=== PATIENT | female | born 1930 | race Caucasian/White ===

== ENCOUNTER 2016-08-24 21:31 | Emergency (ER) | payer OTHER ==
--- NOTE | 2016-08-24 22:16 | EDPHY ---
H & P Stated Complaint: unable to urinate Time Seen by Provider: 08/24/16 21:44 HPI/ROS: Chief complaint: Unable to urinate HPI: Patient is presenting with inability to urinate for the last several hours. Patient has history of urinary retention in the past after surgery. She also has a history of uterine prolapse and uses a pessary. Recently she has had some difficulty with urination which was attributed to the pessary. This was changed to defer when she was having no difficulties with urination after that. She has also recently diagnosed with a urinary tract infections currently taking antibiotics for this. She has been diagnosed with a vaginal yeast infection which has been attributed to the pessary injury removed her pessary today. Since that time she has been unable to urinate. No fevers or chills. No nausea or vomiting. No diarrhea. She does wear ostomy. ROS: 10 point Review of Systems is negative except as noted in the HPI. 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 External auditory canals are clear. Nose: no rhinorrhea Eyes: PERRLA, EOMI Mouth: Moist mucosa Neck: Supple, no JVD Chest: nontender, lungs clear to auscultation Heart: S1, S2 normal, no murmur Abd: Soft, bladder is distended and palpable, no guarding, ostomy in place, normal appearing with normal output. Back: no CVA tenderness, no midline tenderness Ext: no edema, non-tender Skin: no rash Neuro: CN II-XII intact, Sensation grossly intact, Strength 5/5 in bilateral upper and lower extremities - Personal History Current Tetanus Diphtheria and Acellular Pertussis (TDAP): Unsure Tetanus Vaccine Date: see last visit - Medical/Surgical History Hx Asthma: No Hx Chronic Respiratory Disease: No Hx Diabetes: No Hx Cardiac Disease: Yes Hx Renal Disease: No Hx Cirrhosis: No Hx Alcoholism: No Hx HIV/AIDS: No Hx Splenectomy or Spleen Trauma: No Other PMH: Pacemaker (2013), elevated K+, HTN, TIA, hysterectomy, finger amputation, ankle fx, glaucoma, cardiac arrest, inguinal hernia, aortic regurg, scoliosis - Social History Smoking Status: Never smoked Constitutional: Initial Vital Signs Temperature (C) 36.8 C 08/24/16 21:36 Heart Rate 66 08/24/16 21:36 Respiratory Rate 20 08/24/16 21:36 Blood Pressure 120/46 L 08/24/16 21:36 O2 Sat (%) 91 L 08/24/16 21:36 O2 Delivery Mode Room Air Allergies/Adverse Reactions: No Known Allergies Allergy (Unverified 08/24/16 21:36) Home Medications: Medication Instructions Recorded Brimonidine/Timolol [Combigan (*)] 1 drops LEFTEYE BID@,18 08/04/14 Carvedilol [Coreg (*)] 25 mg PO BIDMEAL 08/04/14 Diltiazem Cd [Cardizem ER Q24hr] 180 mg PO DAILY 08/04/14 Folic Acid [Folic Acid 1 MG (*)] 2 mg PO HS 08/04/14 Isosorbide Mononitrate [Isosorbide 60 mg PO DAILY 08/04/14 Mononitrate ER] LORazepam [Ativan (*)] 0.5 mg PO BID@,08/04/14 Lovastatin 20 mg PO HS 08/04/14 Multivitamins [Multivitamin (*)] 1 each PO DAILY 08/04/14 Psyllium Husk (with Sugar) 1 packet PO HS 08/04/14 [Metamucil Packet] Vit A/Vit C/Vit E/Zinc/Copper 1 each PO HS 08/04/14 [Preservision Areds Tablet] Cholecalciferol Vit D3 [Vitamin D3 2,000 units PO HS 08/28/14 (*)] Levothyroxine [Synthroid 50 mcg 50 mcg PO DAILY06 08/28/14 (*)] Aspirin EC [Aspirin EC 325 mg (*)] 325 mg PO DAILY #20 tab 09/11/14 Estrogens,Conjugated [Premarin 1 ethel VG FR@05/08/15 Vaginal (*)] Furosemide [Lasix 20 MG (*)] 20 mg PO DAILY@07 05/08/15 OLANZapine [ZyPREXA 2.5 mg (*)] 7.5 mg PO HS 05/08/15 Oxycodone HCl [Dazidox] 10 mg PO DAILY PRN 05/08/15 Oxycodone HCl [Oxycontin] 40 mg PO Q12 05/08/15 Potassium Cl [Klor-Con 20 meq (*)] 20 meq PO DAILY@07 05/08/15 Zolpidem Tartrate [Ambien 5MG (*)] 5 mg PO HS PRN 05/08/15 Acetaminophen [Tylenol 325mg (*)] 650 mg PO Q4 PRN #0 tab 05/24/15 Lidocaine 5% [Lidoderm 5% Patch 1 ea TD DAILY #0 patch 05/24/15 (*)] Ondansetron Odt [Zofran Odt 4 mg 4 mg PO Q4 PRN #0 tab 05/24/15 (*)] Pantoprazole Sodium [Protonix 40mg 40 mg PO BID #0 tab 05/24/15 (*)] Medical Decision Making ED Course/Re-evaluation: Bladder scan shows greater than 1000 mL in her bladder. Hua catheter has been ordered. Departure - Departure Disposition: Home, Routine, Self-Care Clinical Impression: Urinary retention, Uterine prolapse Condition: Good Instructions: Acute Urinary Retention in Women (ED), Uterine Prolapse (ED), Hua Catheter Placement and Care (ED) Additional Instructions: Keep the catheter in place until your seen by Urology. Follow up with Dr. Blanca, urology in the next 2-3 days. Return emergency depart for increasing pain, fevers, chills, nausea, vomiting, or any other concerns. Referrals: Merari Zabala MD [Primary Care Provider] - As per Instructions Anthony Blanca MD [Medical Doctor] - As per Instructions
[2016-08-24 22:40] LABS: COLOR YELLOW; LEUKOCYTE ESTERASE,URINE NEGATIVE (NEGATIVE); NITRITE,URINE NEGATIVE (NEGATIVE)
[2016-08-24 23:54] VITALS: BP 125/69; PULSE 70; RESP 18; TEMP 98.1; O2SAT 92
== END 2016-08-24 23:53 | disposition home or self-care (01) ==
PROC: 0T9B70Z Drainage of Bladder with Drainage Device, Via Natural or Artificial Opening (ICD-10-PCS; principal; 2016-08-24)
DX: N81.4 Uterovaginal prolapse, unspecified (principal); R33.9 Retention of urine, unspecified; I10 Essential (primary) hypertension; Z79.82 Long term (current) use of aspirin; Z86.73 Personal history of transient ischemic attack (TIA), and cerebral infarction without residual deficits

== ENCOUNTER → 2016-09-25 | Outpatient (CLI) | payer OTHER | LOC: BMCIMAGING 12:30 | PROVIDERS: ATTEND Internal Medicine Rheumatology | DX: M19.011 Primary osteoarthritis, right shoulder (principal); D48.0 Neoplasm of uncertain behavior of bone and articular cartilage ==

== ENCOUNTER 2017-07-13 13:07 | Emergency (ER) | payer OTHER ==
[2017-07-13 13:19] VITALS: RESP 18; O2SAT 93
--- NOTE | 2017-07-13 13:36 | EDPHY ---
General Narrative: CHIEF COMPLAINT: Fall, head injury HISTORY OF PRESENT ILLNESS: Patient arrives by EMS with complaints of mechanical fall. She says she was at the [employer] shop at [facility] when she tripped and fell. She slid down a chair instructed back of her head per EMS. No loss of conscious. Minimal headache. No neck pain or stiffness. No abdominal or back pain. No chest pain. No injury to the arms or legs. No vomiting. No changes in vision. Her complaint is minimal. She was told that she had to come to the emergency department for evaluation. She is seen at time of arrival in no acute distress. There is reports of superficial bleeding from the posterior scalp without an identifiable laceration by EMS. No other associated complaints or modifying factors. REVIEW OF SYSTEMS: Ten systems reviewed and are negative unless otherwise noted in the HPI PCP: Does not recall PAST MEDICAL HISTORY: Multiple diagnoses reviewed. No anticoagulation PAST SURGICAL HISTORY: No recent surgeries SOCIAL HISTORY: Nonsmoker. Lives in independent living. FAMILY HISTORY: Noncontributory EXAMINATION General Appearance: Alert, no distress Head: normocephalic, no depression, ecchymosis or Galarza sign. No raccoon eyes. There is a superficial hematoma of the occiput. No active bleeding. Eyes: Pupils equal and round, no conjunctival pallor or injection. EOMs intact ENT, Mouth: Mucous membranes moist. Airway patent Neck: Normal inspection, supple, non-tender. No crepitus, step-off deformity. Respiratory: Lungs are clear to auscultation Cardiovascular: Regular rate and rhythm. Symmetric radial pulses 2+. Gastrointestinal: Abdomen is soft and nontender. No tympany rigidity Back: No crepitus or deformity. non-tender, no bony abnormalities Neurological: GCS 15. Cranial nerves 2-12 grossly intact. A&O, nonfocal, normal gait Skin: Warm and dry, no rash. Superficial hematoma to the occiput. No identifiable laceration. Extremities: Nontender, no pedal edema. Symmetric range of motion Psychiatric: Mood and affect normal DIFFERENTIAL DIAGNOSES: Including but not limited to closed head injury, scalp hematoma, intracranial hemorrhage, skull fracture MDM: 1:20 p.m. Mechanical fall with occipital hematoma. No evidence of loss of consciousness or sustain concussion. No abnormality on neuro examination. No use of anticoagulants other than aspirin. Her neck exam is normal. Given the patient' s age, I have ordered CT scans of the head and cervical spine. She is in no acute distress. 2:15 p.m. Notified by radiologist Dr. Albert. CT scan of the head and neck reveals no acute findings. There is progression of degenerative changes as noted. 3:00 p.m. Patient re-evaluated. I have examined the wound on the occiput further. There is no laceration that requires suture repair. There is abraded skin only. She is awake alert no acute distress. Her daughter is now bedside. We discussed outpatient follow-up for the degenerative changes of the cervical spine. We discussed ED precautions for head injury including sudden change in headache, neck pain or stiffness, vomiting or visual change. The patient and her daughter are comfortable with this plan. She is discharged home stable condition. SUPERVISION: Patient was independently examined, but I discussed the case with my primary supervising physician Dr. Juinor. - History Smoking Status: Never smoked - Objective Vital Signs: Initial Vital Signs Temperature (C) 98.1 F 07/13/17 13:07 Heart Rate 60 07/13/17 13:07 Respiratory Rate 18 07/13/17 13:07 Blood Pressure 116/59 L 07/13/17 13:07 O2 Sat (%) 93 07/13/17 13:07 O2 Delivery Mode Room Air Allergies/Adverse Reactions: No Known Allergies Allergy (Verified 07/13/17 13:15) Home Medications: Medication Instructions Recorded Brimonidine/Timolol [Combigan (*)] 1 drops LEFTEYE BID@,18 08/04/14 Carvedilol [Coreg (*)] 25 mg PO BIDMEAL 08/04/14 Diltiazem Cd [Cardizem ER Q24hr] 180 mg PO DAILY 08/04/14 Folic Acid [Folic Acid 1 MG (*)] 2 mg PO HS 08/04/14 Isosorbide Mononitrate [Isosorbide 60 mg PO DAILY 08/04/14 Mononitrate ER] LORazepam [Ativan (*)] 0.5 mg PO BID@07,21 08/04/14 Lovastatin 20 mg PO HS 08/04/14 Multivitamins [Multivitamin (*)] 1 each PO DAILY 08/04/14 Psyllium Husk (with Sugar) 1 packet PO HS 08/04/14 [Metamucil Packet] Vit A/Vit C/Vit E/Zinc/Copper 1 each PO HS 08/04/14 [Preservision Areds Tablet] Cholecalciferol Vit D3 [Vitamin D3 2,000 units PO HS 08/28/14 (*)] Levothyroxine [Synthroid 50 mcg 50 mcg PO DAILY06 08/28/14 (*)] Aspirin EC [Aspirin EC 325 mg (*)] 325 mg PO DAILY #20 tab 09/11/14 Estrogens,Conjugated [Premarin 1 ethel VG FR@05/08/15 Vaginal (*)] Furosemide [Lasix 20 MG (*)] 20 mg PO DAILY@05/08/15 OLANZapine [ZyPREXA 2.5 mg (*)] 7.5 mg PO HS 05/08/15 Oxycodone HCl [Dazidox] 10 mg PO DAILY PRN 05/08/15 Oxycodone HCl [Oxycontin] 40 mg PO Q12 05/08/15 Potassium Cl [Klor-Con 20 meq (*)] 20 meq PO DAILY@05/08/15 Zolpidem Tartrate [Ambien 5MG (*)] 5 mg PO HS PRN 05/08/15 Acetaminophen [Tylenol 325mg (*)] 650 mg PO Q4 PRN #0 tab 05/24/15 Lidocaine 5% [Lidoderm 5% Patch 1 ea TD DAILY #0 patch 05/24/15 (*)] Ondansetron Odt [Zofran Odt 4 mg 4 mg PO Q4 PRN #0 tab 05/24/15 (*)] Pantoprazole Sodium [Protonix 40mg 40 mg PO BID #0 tab 05/24/15 (*)] Departure - Departure Disposition: Home, Routine, Self-Care Clinical Impression: Fall Qualifiers: Encounter type: initial encounter Qualified Code(s): W19.XXXA - Unspecified fall, initial encounter Head injury Qualifiers: Encounter type: initial encounter Qualified Code(s): S09.90XA - Unspecified injury of head, initial encounter Scalp abrasion Qualifiers: Encounter type: initial encounter Qualified Code(s): S00.01XA - Abrasion of scalp, initial encounter Condition: Good Instructions: Concussion (ED), Head Injury (ED), Fall Prevention for Older Adults (ED) Additional Instructions: 1. Contact your primary care physician for outpatient follow-up 2. ED precautions for head injury as discussed Referrals: Patient,NotPresent [Unknown] - As per Instructions
[2017-07-13 15:17] VITALS: BP 119/68; PULSE 82; TEMP 97.9
--- NOTE | 2017-07-13 15:20 | ASMTCMCOM ---
CM Note CM Note Notes: Pt seen at the request of EDYTA Munoz. Pt was concerned about transportation home. Pt's daughter was in the room and stated that she would be providing transportation back to [facility]. Request was for wheelchair to car and assistance into car. Date Signed: 07/13/2017 03:20 PM Electronically Signed By:Jennifer Treadwell LCSW
== END 2017-07-13 15:23 | disposition home or self-care (01) ==
LOC: EDUNIT#
DX: S09.90XA Unspecified injury of head, initial encounter (principal); S00.01XA Abrasion of scalp, initial encounter; Z79.82 Long term (current) use of aspirin; W01.198A Fall on same level from slipping, tripping and stumbling with subsequent striking against other object, initial encounter; Y92.513 Shop (commercial) as the place of occurrence of the external cause

== ENCOUNTER → 2018-02-04 | Outpatient (CLI) | payer OTHER | LOC: FIMAGING 10:16 | PROVIDERS: ATTEND Internal Medicine | DX: Z13.820 Encounter for screening for osteoporosis (principal); Z78.0 Asymptomatic menopausal state ==

== ENCOUNTER → 2018-04-25 | Outpatient (CLI) | payer OTHER | LOC: BHFA 10:45 | PROVIDERS: ATTEND Internal Medicine Cardiovascular Disease | DX: I25.10 Atherosclerotic heart disease of native coronary artery without angina pectoris (principal); I10 Essential (primary) hypertension; R01.1 Cardiac murmur, unspecified ==

== ENCOUNTER 2018-06-21 10:59 | Inpatient (IN) | payer OTHER ==
[2018-06-21] MEDS ORDERED: ceFAZolin 2 GM/DEXTROSE 100 ML IV ONE (11:19)
[2018-06-21] MEDS ORDERED: LR 1,000 ML IV ONE (11:19)
[2018-06-21] MEDS ORDERED: CEFAZOLIN 2 GM/DEXTROSE/100 ML BAG IV ONE (11:26)
[2018-06-21 11:48] LABS: PLATELET COUNT 183 10^3/uL (150-400)
[2018-06-21] MEDS ORDERED: BUPIVACAINE 0.5% 30 ML SDV ONE (12:12)
--- NOTE | 2018-06-21 12:18 | PDHPUP ---
History & Physical Update H&P update statement: This history and physical update is based on an assessment of the patient which was completed after admission or registration (within 24 hours), but prior to the surgery/procedure. H&P update: H&P reviewed & patient examined, no change in patient's condition since H&P completed
[2018-06-21] MEDS ORDERED: fentaNYL 100 MCG/2 ML INJ ONE ×3 (12:50→16:50)
[2018-06-21] MEDS ORDERED: PROPOFOL 200 MG/20 ML VIAL ONE (12:50)
[2018-06-21] MEDS ORDERED: DEXAMETHASONE 4 MG/ML VIAL ONE ×2 (12:51)
[2018-06-21] MEDS ORDERED: ROCURONIUM 50 MG/5 ML VIAL ONE ×2 (12:51→13:39)
[2018-06-21] MEDS ORDERED: LIDOCAINE 2% 5 ML SDV ONE (12:51)
[2018-06-21] MEDS ORDERED: ONDANSETRON 4 MG/2 ML VIAL ONE (12:51)
--- NOTE | 2018-06-21 13:00 | PDANEPAE ---
ANE History of Present Illness incisional and parastomal hernia ANE Past Medical History - Cardiovascular History Hx Hypertension: Yes Hx Arrhythmias: Yes Hx Chest Pain: No Hx Coronary Artery / Peripheral Vascular Disease: Yes Hx CHF / Valvular Disease: No Hx Palpitations: No Cardiovascular History Comment: CAD. htn. complete heart block- pacer. chf. has been seen at [facility] - Pulmonary History Hx COPD: No Hx Asthma/Reactive Airway Disease: No Hx Recent Upper Respiratory Infection: No Hx Oxygen in Use at Home: No Hx Sleep Apnea: No Sleep Apnea Screening Result - Last Documented: Negative Pulmonary History Comment: O2 NOC. BIOPSY LLL IN PAST - Neurologic History Hx Cerebrovascular Accident: No Hx Seizures: No Hx Dementia: Yes Neurologic History Comment: mild cognitive issues, still living independently but has nurse doing medications. scoliosis. chronic back pain - Endocrine History Hx Diabetes: No Hypothyroid: No Hyperthyroid: No Obesity: no Endocrine History Comment: hypothyroidism - Renal History Hx Renal Disorders: Yes Renal History Comment: hx of UTI's - Liver History Hx Hepatic Disorders: No - Neurological & Psychiatric Hx Hx Neurological and Psychiatric Disorders: No Neurological / Psychiatric History Comment: On Zyprexa - Cancer History Hx Cancer: Yes Cancer History Comment: skin ca - Congenital Disorder History Hx Congenital Disorders: No - GI History GERD: no Hx Gastrointestinal Disorders: Yes Gastrointestinal History Comment: parastomal hernia. colostomy. hx of colectomy with teddy 2014. hx of constipation - Other Health History Other Health History: glaucoma. wears glasses. bilateral hearing aides - Chronic Pain History Chronic Pain: Yes (back and right shoulder) - Surgical History Prior Surgeries: 05/17/15 sub total colectomy with Teddy. 09/08/14 right MELY with Kenneth. HYSTERECTOMY. FACE PLASTIC. SMALL FINGER R AMPUTATED. BUNIONECTOMY VIN. ING HERNIA REPAIR. HEART STENT X2. R LL LUNG BIOPSTY. CATARACTS VIN. PACEMAKER IMPLANTED ANE Review of Systems Review of Systems: - Exercise capacity Exercise capacity: limited by disability METS (RN): 3 METS - Cardio Pulmonary Function Testing Transthoracic echocardiogram (TTE): 04/25/18- Normal LV size and function, EF 60%, normal wall motion, mild concentric LVH with mild diastolic dysfunction, mild atrial enlargement, aortic valve sclerosis without , moderate AI, moderate MR without MV prolapse, mild to moderate TR, mildly enlarge ascending thoracic aorta 3.8 cm - Pacemaker Pacemaker Type: Permanent Pacer/Defib Pacemaker Tobacco Weigher: Sumomi Pacemaker Model: k173 Pacemaker Mode: DDD Pacemaker Set Rate: 60 Date Pacemaker Last Checked: 01/21/18 ANE Patient History - Allergies Allergies/Adverse Reactions: No Known Allergies Allergy (Verified 06/20/18 15:02) - Home Medications Home medications: home medication list seen and reviewed Home Medications: Aspirin [Aspirin 325 mg (*)] 325 mg PO DAILY@72906/12/18 [Last Taken 06/21/18] Carvedilol [Coreg (*)] 25 mg PO BID@729,06/12/18 [Last Taken 06/21/18] Cholecalciferol Vit D3 [Vitamin D3 2000 units tab (OTC)] 2,000 units PO DAILY20 06/12/18 [Last Taken 06/21/18] Diltiazem HCl [Cartia Xt] 120 mg PO DAILY@62906/12/18 [Last Taken 06/21/18] Docusate Sodium [Colace 100 MG (*)] 200 mg PO DAILY16 06/12/18 [Last Taken 06/21] Donepezil HCl [Aricept 5 MG (*)] 5 mg PO DAILY20 06/12/18 [Last Taken 06/21/18] Folic Acid [Folic Acid 1 MG (*)] 2 mg PO DAILY20 06/12/18 [Last Taken 06/21/18] Furosemide [Lasix 20 MG (*)] 20 mg PO DAILY@62906/12/18 [Last Taken 1 Day Ago ~06/20/18] Herbals/Supplements -Info Only 1 ea PO DAILY 06/12/18 [Last Taken 06/21/18] Isosorbide Mononitrate [Isosorbide Mononitrate ER] 60 mg PO DAILY@72906/12/18 [Last Taken 06/21/18] LORazepam [Ativan (*)] 0.5 mg PO BID@629,06/12/18 [Last Taken 06/21/18] LORazepam [Ativan (*)] 0.5 mg PO Q8HRS PRN 06/12/18 [Last Taken Unknown] Levothyroxine [Synthroid 75 mcg (*)] 75 mcg PO DAILY@62906/12/18 [Last Taken 06/21/18] Multivitamins [Multivitamin (*)] 1 each PO DAILY@0730 06/12/18 [Last Taken 06/21] OLANZapine [ZyPREXA 2.5 mg (*)] 75 mg PO DAILY20 06/12/18 [Last Taken 06/21/18] Potassium Cl [Klor-Con 20 meq (*)] 20 meq PO DAILY@0630 06/12/18 [Last Taken 1 Day Ago ~06/20/18] Sertraline HCl [Zoloft 50mg (*)] 50 mg PO DAILY20 06/12/18 [Last Taken 1 Day Ago ~06/20/18] oxyCODONE HCL [Oxycontin] 40 mg PO BID@0630,16 06/12/18 [Last Taken 06/21/18] - NPO status NPO Status: no food or drink >8 hours NPO Since - Liquids (Date): 06/21/18 NPO Since - Liquids (Time): 07:30 NPO Since - Solids (Date): 06/20/18 NPO Since - Solids (Time): 17:30 - Anes Hx Anes Hx: no prior problems - Smoking Hx Smoking Status: Never smoked - Family Anes Hx Family Anes Hx: none Family Hx Anesthesia Complications: none ANE Labs/Vital Signs - Labs Result Diagrams: 06/21/18 11:40 06/21/18 11:40 - Vital Signs Vital Signs: reviewed preoperatively; see RN documention for details Blood Pressure: 120/74 Heart Rate: 60 Respiratory Rate: 90 Height: 152.4 cm Weight: 52.163 kg ANE Physical Exam - Airway Neck exam: FROM Mallampati Score: Class 2 Mouth exam: small mouth opening - Pulmonary Pulmonary: no respiratory distress - Cardiovascular Cardiovascular: regular rate and rhythym - ASA Status ASA Status: III ANE Anesthesia Plan Anesthesia Plan: general endotracheal anesthesia
--- NOTE | 2018-06-21 15:39 | ASMTCMCOM ---
CM Note CM Note Notes: Pt is a 87 y/o female admitted for hernia surgery w/ Dr. Espinal. Pt lives at [facility]. Pt is requesting for a SNF stay at [facility]. Librado from [facility] will have a bed available to her on Sunday. CM to follow. Plan: [facility] SNF Date Signed: 06/21/2018 03:39 PM Electronically Signed By:DEREK Lewis
[2018-06-21] MEDS ORDERED: SUGAMMADEX SODIUM 200 MG/2 ML VIAL IVP ONE (16:18)
[2018-06-21] MEDS ORDERED: PROMETHAZINE HCL 25 MG/ML INJ IVP PRN (16:50)
[2018-06-21] MEDS ORDERED: NALOXONE HCL 0.4 MG/ML INJ IVP PRN (16:50)
--- NOTE | 2018-06-21 16:50 | POSTANESTH ---
Post Anesthetic Evaluation Cardiovascular Status: Normal, Stable Respiratory Status: Normal, Stable Level of Consciousness/Mental Status: Can Participate in Eval Pain Control: Adequate, Prn Tx Ordered Nausea/Vomiting Control: Adequate, Prn Tx Ordered Complications Possibly Related to Anesthesia: None Noted
[2018-06-21] MEDS: fentaNYL 100 MCG/2 ML INJ IVP PRN ×2 (16:53→17:05)
[2018-06-21] MEDS ORDERED: HYDROmorphONE/DILAUDID 2 MG/ML INJ ONE (17:13)
--- NOTE | 2018-06-21 17:34 | POSTOPPROG ---
Post Op Note Date of Operation: 06/21/18 Surgeon: Rosalba Espinal Stringing Machine Tender: deon Anesthesiologist: marina Anesthesia: GET(General Endotracheal) Pre-op Diagnosis: parastomal hernia, ventral hernia Post-op Diagnosis: same Indication: symptomatic ventral and parastomal hernias Procedure: davinci parastomal hernia repair with acell, open ventral hernia Findings: large hernias, not incarcerated Inf/Abcess present in the surg proc area at time of surgery?: No EBL: Minimal Specimen(s): none
[2018-06-21] MEDS ORDERED: ONDANSETRON 4 MG/2 ML VIAL IVP PRN (17:35)
[2018-06-21] MEDS ORDERED: diphenhydrAMINE 25 MG CAP PO PRN (17:35)
[2018-06-21] MEDS ORDERED: ONDANSETRON DISINTEGRATING 4 MG TAB PO PRN (17:35)
[2018-06-21] MEDS ORDERED: ACETAMINOPHEN 325 MG TAB PO PRN (17:35)
[2018-06-21] MEDS ORDERED: LORazepam 0.5 MG TAB PO PRN (17:36)
[2018-06-21] MEDS: HYDROCODONE/APAP 5/325 TAB PO PRN ×2 (18:15→19:01)
[2018-06-21] MEDS: HYDROmorphONE/DILAUDID 1 MG/ML INJ IVP PRN ×2 (19:12→22:09)
[2018-06-21] MEDS ORDERED: OLANZapine 2.5 MG TAB PO SCH (20:00)
[2018-06-21] MEDS: SERTRALINE HCL 50 MG TAB PO SCH (21:45)
[2018-06-21] MEDS: OLANZapine 2.5 MG TAB PO SCH (21:45)
[2018-06-21] MEDS: DONEPEZIL HCL 5 MG TAB PO SCH (21:45)
[2018-06-22] MEDS: LORazepam 0.5 MG TAB PO SCH ×2 (05:32→16:16)
[2018-06-22] MEDS: LEVOTHYROXINE 75 MCG TAB PO SCH (05:33)
[2018-06-22] MEDS: CARVEDILOL 25 MG TAB PO SCH ×2 (07:36→16:17)
[2018-06-22] MEDS: ASPIRIN 325 MG TAB PO SCH (07:36)
[2018-06-22] MEDS: HYDROmorphONE/DILAUDID 1 MG/ML INJ IVP PRN ×3 (09:50→18:17)
--- NOTE | 2018-06-22 10:58 | SOAPPROG ---
SOAP Progress Note Assessment/Plan: Assessment: Plan: 06/22/18 10:58 S/p surgery for leaking around ostomy: per surgery. C/o pain, and pain medications adjusted. Hypertension: on carvedilol. BP doing fairly well, though one high reading. Will resume diltiazem. Ischemic CAD: stable, no chest pain. Resume isosorbide. Hypothyroid: on replacement Chronic renal insufficiency: mildly elevated creatinine, within her usual range Edema: will resume lasix, potassium Chronic constipation: resume docusate Chronic pain: on her usual pain medications as well as additional pain medication post-operatively Memory loss: on Aricept Anxiety/agitation: doing well right now. On lorazepam, zyprexa Depression: on zoloft Dispo: SNF bed available on Sunday at [facility]. Change to inpt status 06/22/18 11:03 Subjective: Sitting up in bed. More comfortable now than she was sitting in chair. C/o abdominal pain. Spoke with Dr. Matos who has adjusted her pain meds. Objective: Vital Signs Temp Pulse Resp BP Pulse Ox 36.4 C 87 16 142/58 H 95 06/22/18 07:35 06/22/18 07:35 06/22/18 07:35 06/22/18 07:35 06/22/18 07:35 Laboratory Results 06/21/18 11:40 06/21/18 11:40 06/21/18 06/22/18 06/23/18 05:59 05:59 05:59 Intake Total 1460 300 Output Total 775 Balance 685 300 General: awake, alert, pleasant Neck: no masses, adenopathy Lungs: clear, but breaths very shallow Cardiovascular: RRR Abdomen: a few BS noted, tender on R side Extremities: mild edema ICD10 Worksheet Patient Problems: Problems Problem Status Onset Colonic obstruction Acute Leukocytosis Acute MRSA (methicillin resistant Staphylococcus aureus) Acute ~04/10/17 Methicillin resistant Staphylococcus aureus infection Acute 08/21/16 Osteoarthritis of hip Acute
--- NOTE | 2018-06-22 11:33 | SOAPPROG ---
OMAR Progress Note Assessment/Plan: Assessment: POD#1 s/p parastomal and ventral hernia repair - VSS, HDs - pain she states is a 5/10, wants it to be 1/10. Has unrealistic expectations. I did change her norco and gave a scale to her IV dilaudid but by no means should she expect no pain from this procedure. I relayed this to her and her daughter and stated that in addition to having manageable pain she also needs to breathe which is important to post op healing - leave john today - Dr Mcfarlane helping manage medical comorbidities, assistance appreciated - ambulate Plan: 06/22/18 11:31 Subjective: wants more pain meds Objective: Vital Signs Temp Pulse Resp BP Pulse Ox 36.6 C 67 16 109/62 95 06/22/18 11:10 06/22/18 11:10 06/22/18 11:10 06/22/18 11:10 06/22/18 11:10 Laboratory Results 06/21/18 11:40 06/21/18 11:40 06/21/18 06/22/18 06/23/18 05:59 05:59 05:59 Intake Total 1460 300 Output Total 775 Balance 685 300 ICD10 Worksheet Patient Problems: Problems Problem Status Onset Colonic obstruction Acute Leukocytosis Acute MRSA (methicillin resistant Staphylococcus aureus) Acute ~04/10/17 Methicillin resistant Staphylococcus aureus infection Acute 08/21/16 Osteoarthritis of hip Acute
[2018-06-22] MEDS: DILTIAZEM CD 120 MG CAP PO SCH (11:34)
[2018-06-22] MEDS: FUROSEMIDE 20 MG TAB PO SCH (11:34)
[2018-06-22] MEDS: ISOSORBIDE MONONITRATE 30 MG TAB.SR PO SCH (11:34)
[2018-06-22] MEDS: oxyCODONE IR 5 MG TAB PO PRN ×2 (11:34→21:17)
[2018-06-22] MEDS: POTASSIUM CL 20 MEQ TAB PO SCH (11:34)
--- NOTE | 2018-06-22 14:24 | PDMN ---
Medical Necessity Medical necessity: Pt meets INPT criteria per MD as of 06/21/18 and [facility] [id number] ( est. LOS >2 MN for eval/tx s/p hernia repair with comorbid htn, CAD, hypothyroid , CRI, edema, memory loss, anxiety/agitation, depression, chronic pain).
[2018-06-22] MEDS: DOCUSATE SODIUM 100 MG CAP PO SCH (16:17)
[2018-06-22] MEDS: OLANZapine 2.5 MG TAB PO SCH (21:17)
[2018-06-22] MEDS: FOLIC ACID 1 MG TAB PO SCH (21:17)
[2018-06-22] MEDS: CHOLECALCIFEROL VIT D3 2,000 UNITS TAB/CAP PO SCH (21:18)
[2018-06-22] MEDS: DONEPEZIL HCL 5 MG TAB PO SCH (21:18)
[2018-06-22] MEDS: SERTRALINE HCL 50 MG TAB PO SCH (21:18)
[2018-06-23] MEDS: FUROSEMIDE 20 MG TAB PO SCH (05:25)
[2018-06-23] MEDS: POTASSIUM CL 20 MEQ TAB PO SCH (05:25)
[2018-06-23] MEDS: LORazepam 0.5 MG TAB PO SCH ×2 (05:25→15:18)
[2018-06-23] MEDS: DILTIAZEM CD 120 MG CAP PO SCH (05:26)
[2018-06-23] MEDS: LEVOTHYROXINE 75 MCG TAB PO SCH (05:26)
[2018-06-23 06:49] LABS: PLATELET COUNT 131 10^3/uL (150-400)
[2018-06-23] MEDS ORDERED: Herbals/Supplements -Info Only PO SCH (09:00)
[2018-06-23] MEDS: ASPIRIN 325 MG TAB PO SCH (09:06)
--- NOTE | 2018-06-23 09:06 | SOAPPROG ---
SOAP Progress Note Assessment/Plan: Assessment: POD#2 s/p parastomal and ventral hernia repair - VSS, HDs - pain is controlled, stick with current regimen and wean IV as tolerates - dc john today - abdomen is soft, stoma is beefy red and appliance has stool in it. Reg diet, bowel regimen given chronic narcotic use - Dr Mcfarlane helping manage medical comorbidities, assistance appreciated - making slow progress, anticipate she will be ready for dc in another 1-2 days , needs to ambulate more. Plan: 06/22/18 11:31 06/23/18 09:04 Subjective: a little out of it today, denies pain Objective: Vital Signs Temp Pulse Resp BP Pulse Ox 36.7 C 74 16 113/47 L 94 06/23/18 08:00 06/23/18 08:00 06/23/18 08:00 06/23/18 08:00 06/23/18 08:00 Laboratory Results 06/23/18 04:50 06/23/18 04:50 06/22/18 06/23/18 06/24/18 05:59 05:59 05:59 Intake Total 1460 500 Output Total 775 2100 Balance 685 -1600 ICD10 Worksheet Patient Problems: Problems Problem Status Onset Colonic obstruction Acute Leukocytosis Acute MRSA (methicillin resistant Staphylococcus aureus) Acute ~04/10/17 Methicillin resistant Staphylococcus aureus infection Acute 08/21/16 Osteoarthritis of hip Acute
[2018-06-23] MEDS: MULTIVITAMINS 1 EACH TAB PO SCH (09:07)
[2018-06-23] MEDS: ISOSORBIDE MONONITRATE 30 MG TAB.SR PO SCH (09:07)
[2018-06-23] MEDS: CARVEDILOL 25 MG TAB PO SCH ×2 (09:07→15:17)
--- NOTE | 2018-06-23 11:52 | SOAPPROG ---
SOAP Progress Note Assessment/Plan: Assessment: Plan: 06/22/18 10:58 S/p surgery for leaking around ostomy: per surgery. C/o pain, and pain medications adjusted. Hypertension: on carvedilol. BP doing fairly well, though one high reading. Will resume diltiazem. Ischemic CAD: stable, no chest pain. Resume isosorbide. Hypothyroid: on replacement Chronic renal insufficiency: mildly elevated creatinine, within her usual range Edema: will resume lasix, potassium Chronic constipation: resume docusate Chronic pain: on her usual pain medications as well as additional pain medication post-operatively Memory loss: on Aricept Anxiety/agitation: doing well right now. On lorazepam, zyprexa Depression: on zoloft Dispo: SNF bed available on Sunday at [facility]. Change to inpt status 06/22/18 11:03 06/23/18 11:54 S/p parastomal and ventral hernia repair: as per surgery. C/o pain but appears comfortable. Hypotension: suspect this is related to resumption of diltiazem, lasix. She is asymptomatic, but will bolus with 500cc NS, and hold lasix tomorrow until she is more stable. Hypertension: see above. Will continue carvedilol, diltiazem CRI: creatinine better Edema: not edematous today. Balancing hypotension with edema. Hold lasix, as noted, for now Mild increase in WBC: will follow Dispo: D/c to SNF when ready. PT/OT eval. Subjective: Sitting up in chair and appears comfortable, though c/o abdominal pain and not sure surgery was a good idea. Starting to feel hungry. BP low this morning without c/o dizziness, lightheadedness. Wants to walk. Would like john catheter removed. Objective: Vital Signs Temp Pulse Resp BP Pulse Ox 36.3 C 67 15 84/42 L 92 06/23/18 11:13 06/23/18 11:13 06/23/18 11:13 06/23/18 11:13 06/23/18 11:13 Laboratory Results 06/23/18 04:50 06/23/18 04:50 06/22/18 06/23/18 06/24/18 05:59 05:59 05:59 Intake Total 1460 500 Output Total 775 2100 Balance 685 -1600 General: well-appearing, NAD, alert Neck: no masses, adenopathy Lungs: diminished breath sounds, no rales noted CV: RRR Abdomen: occasional bowel sound noted, soft Extremities: no edema ICD10 Worksheet Patient Problems: Problems Problem Status Onset Colonic obstruction Acute Leukocytosis Acute MRSA (methicillin resistant Staphylococcus aureus) Acute ~04/10/17 Methicillin resistant Staphylococcus aureus infection Acute 08/21/16 Osteoarthritis of hip Acute
[2018-06-23] MEDS ORDERED: NS 500 ML IV ONE (12:00)
[2018-06-23] MEDS: oxyCODONE IR 5 MG TAB PO PRN ×2 (13:01→20:28)
[2018-06-23] MEDS: DOCUSATE SODIUM 100 MG CAP PO SCH (15:18)
--- NOTE | 2018-06-23 17:16 | CPEKG ---
Test Reason : OPEN Blood Pressure : / mmHG Vent. Rate : 060 BPM Atrial Rate : 060 BPM P-R Int : 200 ms QRS Dur : 142 ms QT Int : 481 ms P-R-T Axes : 065 265 083 degrees QTc Int : 481 ms Atrial-ventricular dual-paced rhythm Confirmed by Bennett Haddad ([id number]) on 06/23/2018 5:15:26 PM Referred By: Confirmed By:Bennett Haddad
[2018-06-23] MEDS: DONEPEZIL HCL 5 MG TAB PO SCH (20:20)
[2018-06-23] MEDS: OLANZapine 2.5 MG TAB PO SCH (20:20)
[2018-06-23] MEDS: SERTRALINE HCL 50 MG TAB PO SCH (20:20)
[2018-06-23] MEDS: FOLIC ACID 1 MG TAB PO SCH (20:20)
[2018-06-23] MEDS: CHOLECALCIFEROL VIT D3 2,000 UNITS TAB/CAP PO SCH (20:20)
[2018-06-23 22:32] LABS: PLATELET COUNT 146 10^3/uL (150-400)
[2018-06-24 05:35] LABS: PLATELET COUNT 108 10^3/uL (150-400)
[2018-06-24] MEDS: LEVOTHYROXINE 75 MCG TAB PO SCH (05:59)
[2018-06-24] MEDS: LORazepam 0.5 MG TAB PO SCH ×2 (05:59→15:50)
[2018-06-24] MEDS: DILTIAZEM CD 120 MG CAP PO SCH (05:59)
[2018-06-24] MEDS: ISOSORBIDE MONONITRATE 30 MG TAB.SR PO SCH (07:24)
[2018-06-24] MEDS: CARVEDILOL 25 MG TAB PO SCH ×2 (07:24→15:50)
[2018-06-24] MEDS: MULTIVITAMINS 1 EACH TAB PO SCH (07:24)
[2018-06-24] MEDS: ASPIRIN 325 MG TAB PO SCH (07:24)
--- NOTE | 2018-06-24 08:51 | SOAPPROG ---
SOAP Progress Note Assessment/Plan: Assessment: Plan: 06/24/18 08:49 s/p abdominal wall surgery. Improving as expected. BP variable, will follow. Anticipate steady improvement at this point. She is ambulating safely with walker. No changes needed currently. SNF rehab upon d/c, seems appropriate now. Subjective: Sophie is doing pretty well. + belly pain after surgery. She complains of post/op pain as expected. No n/v. Appetite low. No other complaints Objective: Vital Signs Temp Pulse Resp BP Pulse Ox 36.6 C 74 18 150/82 H 94 06/24/18 07:22 06/24/18 07:22 06/24/18 07:22 06/24/18 07:22 06/24/18 07:22 Laboratory Results 06/24/18 04:15 06/23/18 04:50 06/23/18 06/24/18 06/25/18 05:59 05:59 05:59 Intake Total 500 950 Output Total 2100 1500 Balance -1600 -550 Gen: NAD Lungs: CTAB Heart: RRR 2/6 ELYSE Abd--+ stool in ostomy bag. Soft, mild tenderness LE's trace edema LABs ok ICD10 Worksheet Patient Problems: Problems Problem Status Onset Colonic obstruction Acute Leukocytosis Acute MRSA (methicillin resistant Staphylococcus aureus) Acute ~04/10/17 Methicillin resistant Staphylococcus aureus infection Acute 08/21/16 Osteoarthritis of hip Acute
[2018-06-24] MEDS: LIDOCAINE 4%/MENTHOL 1% PATCH TD SCH (10:34)
--- NOTE | 2018-06-24 10:45 | SOAPPROG ---
SOAP Progress Note Assessment/Plan: Assessment/Plan: 87yo F POD#3 s/p robotic parastomal hernia repair with Acell, open ventral hernia repair Pain controlled with PO pain meds. Add lidoderm Advance to regular diet Ambulate Yesterday concern for blood in ostomy appliance - none seen today. Will monitor Voiding spontaneously s/p john removal Dr. Mcfarlane/Jefferson PARickC following and managing comorbidities Dispo: likely DC later today or tomorrow if pain controlled and tolerating diet. DC to SNF S: seems confused this am, asks questions multiple times. Decreased appetite. Abdominal pain controlled with PO meds O: laying in bed, comfortable, NAD No increased WOB No peripheral edema +BS throughout. Abd tender to palpation around ostomy. Stool in ostomy appliance. Stoma pink with good profile. No active bleeding. Midline dressing with minimal staining Objective: Vital Signs Temp Pulse Resp BP Pulse Ox 36.6 C 74 18 150/82 H 94 06/24/18 07:22 06/24/18 07:22 06/24/18 07:22 06/24/18 07:22 06/24/18 07:22 Laboratory Results 06/24/18 04:15 06/23/18 04:50 06/23/18 06/24/18 06/25/18 05:59 05:59 05:59 Intake Total 500 950 Output Total 2100 1500 175 Balance -1600 -550 -175 ICD10 Worksheet Patient Problems: Problems Problem Status Onset Colonic obstruction Acute Leukocytosis Acute MRSA (methicillin resistant Staphylococcus aureus) Acute ~04/10/17 Methicillin resistant Staphylococcus aureus infection Acute 08/21/16 Osteoarthritis of hip Acute
[2018-06-24] MEDS: oxyCODONE IR 5 MG TAB PO PRN ×2 (14:00→18:06)
--- NOTE | 2018-06-24 14:22 | ASMTCMCOM ---
CM Note CM Note Notes: CM chart review, therapies ordered & pending recommendations. [facility] accept after Sunday. CM to follow. Current discharge plan: [facility]. Date Signed: 06/23/2018 03:27 PM Electronically Signed By:Obdulia Fragoso
--- NOTE | 2018-06-24 14:22 | ASMTLACE ---
BK Acuity / Level of Answers: Yes Care: Did the patient have an inpatient admission? Comorbidities - select Answers: Congestive heart failure all that apply Coronary Artery Disease Dementia Opioid dependence / Chronic pain Previous myocardial infarction Other Notes: HTN # of Emergency department Answers: 0 visits in the last 6 months Score: 16 Date Signed: 06/23/2018 06:25 PM Electronically Signed By:Marilu Agrawal
--- NOTE | 2018-06-24 14:23 | ASMTCMCOM ---
CM Note CM Note Notes: CM spoke to ANGEL Newton. PT will ideally eval pt today. CM spoke to Libr[facility] at [facility]. [facility] will be able to accept pt once pt is medically stable. Surgery wants to see if pt can tolerate solids today. CM to follow. Plan: [facility] Date Signed: 06/24/2018 11:08 AM Electronically Signed By:DEREK Lewis
[2018-06-24] MEDS: DOCUSATE SODIUM 100 MG CAP PO SCH (15:50)
[2018-06-24] MEDS: FOLIC ACID 1 MG TAB PO SCH (19:51)
[2018-06-24] MEDS: DONEPEZIL HCL 5 MG TAB PO SCH (19:52)
[2018-06-24] MEDS: OLANZapine 2.5 MG TAB PO SCH (19:52)
[2018-06-24] MEDS: SERTRALINE HCL 50 MG TAB PO SCH (19:53)
[2018-06-24] MEDS: CHOLECALCIFEROL VIT D3 2,000 UNITS TAB/CAP PO SCH (19:53)
[2018-06-24] MEDS ORDERED: PATCH REMOVAL 1 EA PATCH TD SCH (21:00)
[2018-06-25] MEDS: LORazepam 0.5 MG TAB PO SCH (05:34)
[2018-06-25] MEDS: DILTIAZEM CD 120 MG CAP PO SCH (05:34)
[2018-06-25] MEDS: LEVOTHYROXINE 75 MCG TAB PO SCH (05:35)
[2018-06-25 08:36] VITALS: BP 131/66
[2018-06-25] MEDS ORDERED: oxyCODONE IR 5 MG TAB PO PRN (08:37)
--- NOTE | 2018-06-25 08:40 | SOAPPROG ---
SOAP Progress Note Assessment/Plan: Assessment/Plan: 87yo F POD#4 s/p robotic parastomal hernia repair with Acell, open ventral hernia repair Pain controlled with PO pain meds and lidoderm Tolerating regular diet Ambulate Voiding spontaneously s/p john removal Dr. Mcfarlane/Jefferson BRISCOE following and managing comorbidities May shower Dispo: Seen with Dr. Espinal. DC to SNF today. FU 10 days for staple removal. SNF to remove outer bandage and appliance change on Sunday S: Still having pain, controlled with PO meds O: laying in bed, comfortable, NAD No increased WOB No peripheral edema +BS throughout. Abd tender to palpation around ostomy. Stool in ostomy appliance. Stoma pink with good profile. No active bleeding. Midline dressing with minimal staining Bruise L thigh in distribution of bovie pad 06/25/18 08:45 Objective: Vital Signs Temp Pulse Resp BP Pulse Ox 36.3 C 60 14 131/66 H 100 06/25/18 08:00 06/25/18 08:00 06/25/18 08:00 06/25/18 08:00 06/25/18 08:00 Laboratory Results 06/24/18 04:15 06/23/18 04:50 06/24/18 06/25/18 06/26/18 05:59 05:59 05:59 Intake Total 950 960 Output Total 1500 1600 Balance -550 -640 ICD10 Worksheet Patient Problems: Problems Problem Status Onset Colonic obstruction Acute Leukocytosis Acute MRSA (methicillin resistant Staphylococcus aureus) Acute ~04/10/17 Methicillin resistant Staphylococcus aureus infection Acute 08/21/16 Osteoarthritis of hip Acute
--- NOTE | 2018-06-25 08:45 | PDIAF ---
- Diagnosis Diagnosis: parastomal hernia and ventral hernia Code Status: Full Code - Medication Management Discharge Medications: electronically signed and located in the Home Medication List. - Orders Services needed: Home Care, Registered Nurse, Certified Membership Sales Advisor, Physical Therapy, Occupational Therapy Home Care Face to Face: I certify that this patient was under my care and that I had the required [id number] encounter meeting the encounter requirements on the discharge day. My findings support the fact that the patient is homebound as defined in Home Care Face to Face Continued: CMS Chapter 7 Medicare Benefits Manual 30.1.1 , The condition of the patient is such that there exists a normal inability to leave home and consequently, leaving home would require a considerable and taxing effort. Isolation Type: Contact Isolation Diet Recommendation: no restrictions on diet Diet Texture: Regular Texture Diet Additional Instructions: May shower. Remove silver dressing on sunday with regular appliance change. F/u in [address] Espinal for staple removal. Avoid heavy lifting, pushing or pulling x 6 weeks from surgery. Call with worsening symptoms, questions or concerns - Follow Up Care Current Providers and Referrals: Merari Zabala MD [Primary Care Provider] - Rosalba Espinal MD [Medical Doctor] - 07/05/18
[2018-06-25] MEDS: CARVEDILOL 25 MG TAB PO SCH (08:47)
[2018-06-25] MEDS: MULTIVITAMINS 1 EACH TAB PO SCH (08:47)
[2018-06-25] MEDS: ASPIRIN 325 MG TAB PO SCH (08:47)
[2018-06-25] MEDS: ISOSORBIDE MONONITRATE 30 MG TAB.SR PO SCH (08:47)
[2018-06-25] MEDS: LIDOCAINE 4%/MENTHOL 1% PATCH TD SCH (08:48)
--- NOTE | 2018-06-25 10:34 | ASDISCHSUM ---
Discharge Information Plan Status:SNF Medically Cleared to Leave:06/24/2018 Discharge Date:06/24/2018 CM D/C Disposition: ADT D/C Disposition:Care Home Facility Projected Discharge Date:06/25/2018 11:00 AM Transportation at D/C: Discharge Delay Reason: Follow-Up Date:06/25/2018 11:00 AM Discharge Slot: Final Diagnosis: Placement Information Referral Type:*Care Home/SNF Referral ID:[id number] Provider Name:[facility] Address 1:[address] Address 2: City:[place] Selection Factors: State:[place] Patient Contact Information Contact Name:DEEP Relationship:Daughter Address: Work Phone: City: [facility] Phone: [facility] Code: Email: Financial Information Financial Class:Medicare Primary Plan Desc:MEDICARE INPATIENT Primary Plan Number:[id number] Secondary Plan Desc:[employer]ANCE Secondary Plan Number:[id number] Assessment Information [facility] CM Progress Note CM Note CM Note Notes: Pt is a 87 y/o female admitted for hernia surgery w/ Dr. Espinal. Pt lives at [facility]. Pt is requesting for a SNF stay at [facility]. Librado from [facility] will have a bed available to her on Sunday. CM to follow. Plan: [facility] Date Signed: 06/21/2018 03:39 PM Electronically Signed By:DEREK Lewis [facility] CM Progress Note CM Note CM Note Notes: CM chart review, therapies ordered & pending recommendations. [facility] accept after Sunday. CM to follow. Current discharge plan: [facility] Date Signed: 06/23/2018 03:27 PM Electronically Signed By:Obdulia Fragoso LACE LACE Acuity / Level of Answers: Yes Care: Did the patient have an inpatient admission? Comorbidities - select Answers: Congestive heart failure all that apply Coronary Artery Disease Dementia Opioid dependence / Chronic pain Previous myocardial infarction Other Notes: HTN # of Emergency department Answers: 0 visits in the last 6 months Score: 16 Date Signed: 06/23/2018 06:25 PM Electronically Signed By:Marilu Agrawal [facility] Progress Note CM Note CM Note Notes: CM spoke to ANGEL Newton. PT will ideally eval pt today. EM[facility] will be able to accept pt once pt is medically stable. Surgery wants to see if pt can tolerate solids today. CM to follow. Plan[facility] Date Signed: 06/24/2018 11:08 AM Electronically Signed By:DEREK Lewis Case Management Discharge Plan Note Case Management Discharge Discharge Order Complete? Answers: Yes Patient to Obtain Answers: Other Notes: [facility] Medications Transportation Arranged Answers: Family/Friends EMTALA Complete Answers: No Case Management Transport Answers: No Form Complete Faxed Final Orders Answers: Yes Agency/Facility Transfer Answers: Yes Report Printed & Faxed to Receiving Agency Family Notified Answers: Yes Discharge Comments Notes: Pts case discussed w/ ANGEL Haji. Pt is being d/c'd today to [facility]. DC orders sent. Non triggering PASRR completed. CM spoke to pts PCP's office regarding her psych meds. Pt has a dementia dx. CM notified pts daughter Rosalba of the d/c. Pts caregiver Tabitha will be transporting pt back to [facility]. Raissa has called to give report. CM available for changes. Plan: [facility] Date Signed: 06/25/2018 10:33 AM Electronically Signed By:DEREK Lewis Intervention Information Intervention Type:*Incorrect Registration Date of Service:06/22/2018 11:10 AM Patient Type:Inpatient Staff Member:ANGEL Tee, Jayne Hours: Discipline: Severity: Comment:
--- NOTE | 2018-06-28 12:58 | GDS ---
PRIMARY ADMISSION DIAGNOSIS: Parastomal and ventral hernias. SECONDARY DIAGNOSES: Coronary artery disease, chronic back pain, hypertension, hypothyroidism, scoliosis. REASON FOR ADMISSION: 87-year-old female with ventral and parastomal hernias ready for surgical repair. HOSPITAL COURSE: The patient was taken to the operating room by Dr. Espinal for da Arlette parastomal repair with open ventral repair. The surgery was without complication. On postop day 0, she reported some increased pain and was put on IV pain medication with good result. By postop day 2, her Hua was discontinued and ambulation with a walker was encouraged. On postop day 3, she was weaned to oral pain medication and she advanced a regular diet. On postop day 4, she was appropriate for discharge. DISCHARGE CONDITION: The patient was discharged to [facility]. She was ambulating with a walker, tolerating a regular diet. Her pain was controlled with oral pain medications. DISCHARGE INSTRUCTIONS: detention facility to change dressing on Sunday. The patient will follow up with Dr. Espinal in her office next week. /[id number]/MODL MTDD
--- NOTE | 2018-07-07 15:00 | GOP ---
DATE OF OPERATION: 06/21/2018 SURGEON: Rosalba Espinal MD DIE BAKER: GALINA Munoz ANESTHESIA: General. ANESTHESIOLOGIST: Dr. James Simon PREOPERATIVE DIAGNOSIS: Parastomal hernia and ventral hernia. POSTOPERATIVE DIAGNOSIS: Parastomal hernia and ventral hernia. PROCEDURE PERFORMED: Da Arlette parastomal hernia repair with ACell and open ventral hernia repair. FINDINGS: Large hernias. SPECIMENS: None. ESTIMATED BLOOD LOSS: Minimal. INDICATIONS: The patient is an 87-year-old woman status post subtotal colectomy with end-ileostomy. She has had problems with pouching and developed a hernia. We have been delaying surgery as this was manageable with a belt. She has more recently had difficulty getting her device to stay in place during the day, as well as at night creating a situation where she does not like to leave the house any longer. Her health has also improved. DESCRIPTION OF PROCEDURE: Patient was brought into the operating room, placed supine on the table, and general anesthesia was administered. Her abdomen was prepped and draped in the usual sterile fashion. Infiltrated all sites with 0.5 % Marcaine prior to making incisions. I made a small incision on the left side of her abdomen. I elevated it. I inserted the Veress needle, it passed the hanging drop test. I placed a 5 mm trocar with a InboundWriter camera at this site. There were no injuries from Veress needle placement. Under direct vision, I was able to place two 8 mm trocars laterally on the left side of the abdomen and then upsized the central trocar. The robot was docked. The parastomal hernia was very large. I was able to reduce the hernia sac and incorporated it with 0 silk suture. I performed interrupted sutures. I then took a 0 V-Loc 9 inch and over-sewed the area. I then placed ACell and tacked this around the peristomal hernia to buttress the repair. I then attempted repair of the large ventral hernia; however, due to her petite size, the reach was just unable to be accommodated even with moving the ports and re-docking. I undocked the robot. I made a midline incision, dissected down through the skin and subcutaneous tissue. I was then able to suture her fascia closed. The fascia appeared strong. I elected not to place a large piece of mesh due to her age and that this would also need to be extremely large intraperitoneal or I would have to make a large flap as unable to create a preperitoneal repair space. Once her fascia was closed, I then closed the skin with awa. I placed silver dressing and replaced her appliance. She was awakened in the operating room, extubated, transferred to PACU in stable condition. /[id number]/MODL MTDD
== END 2018-06-25 11:35 | DRG 355 ==
LOC: F3E 10:59 → OBSVTOIN 10:59 → F3E 18:11
PROVIDERS: ADMIT Surgery; ATTEND Surgery
DX: K43.5 Parastomal hernia without obstruction or gangrene (principal); K43.9 Ventral hernia without obstruction or gangrene; Z93.2 Ileostomy status; I12.9 Hypertensive chronic kidney disease with stage 1 through stage 4 chronic kidney disease, or unspecified chronic kidney disease; N18.9 Chronic kidney disease, unspecified; I25.10 Atherosclerotic heart disease of native coronary artery without angina pectoris; K59.09 Other constipation; G89.29 Other chronic pain
CPT/HCPCS: 97161-GP; 97530-GP; C1763; G8978-GP-CJ; G8979-GP-CI; J0690; J1100; J1170; J2270; J2405; J2704; J3010